=== PATIENT | female | born 1940 | race Caucasian/White ===

== ENCOUNTER → 2017-08-06 | Outpatient (CLI) | payer MEDICARE, OTHER ==
[~2017-08-06] MED LIST: ALBU8.5H IH; ASPI-757 PO; BECL8.7A6 IH; CALC-29 PO; CETI10CA8 PO; ESCI10TA8 PO; ESCI5TAB3 PO; GABA-549 PO; LEVO75TA73 PO; LISI5TAB25 PO; VITA1CAP46 PO
--- NOTE | 2017-08-06 11:44 | RADIOLOGY IMAGING REPORT ---
FACILITY: [facility] - [place] PATIENT NAME: Alexandra Sharma : 1940 MR: [id number] V: [id number] EXAM DATE: ORDERING PHYSICIAN: CECILIA DOMINIQUE TECHNOLOGIST: Location: [facility] - [place] Patient: Alexandra Sharma : 1940 Visit/Account:[id number] Date of Sevice: 08/06/2017 DEXA Scan Clinical history: Postmenopausal. Comparison: DEXA scan from 03/26/2016. LUMBAR SPINE: The bone mineral density (BMD) measured from L1-L4 correlates with a Z-score of 2.1 and a T-score of 0.6 which is Normal as defined by the World Health Organization. The corresponding risk of fracture in the lumbar spine is Not increased compared with a young adult reference population. This value de leon s increase by 2.5 % since the prior study. More than 5% change is considered significant. HIP: Bone mineral density (BMD) measured in the LEFT total hip region correlates with a Z-score -0.6 and a T-score of -2.3 which is osteopenia as defined by the World Health Organization. The corresponding risk of fracture in the hip is 4-6 times increased compared to a young adult reference population. Th is value has decreased by 7.7 % since the prior study. More than 5% change is considered significant . T score left femoral neck -2.9 Bone mineral density (BMD) measured in the Femoral Neck region measures 0.636 g/cm?. IMPRESSION: 1. Lumbar spine: Normal. There has been 2.5% increase in the bone mineral density since the previou s exam. 2. Left Total Hip: Osteopenia. There has been 7.7% decrease in the bone mineral density since the p revious exam. 3. Femoral Neck: Bone Mineral Density is 0.636 g/cm? The next DEXA scan of this patient should include the following sites: L1-L4 and the left hip. FRAX? WHO Fracture Risk Assessment Tool link: <http://www.shef.ac.uk/FRAX/tool.jsp?locationValue=9> PLEASE NOTE: 1) The World Health Organization defines low BMD as follows: T-score Normal > -1 Osteopenia < -1 and > -2.5 Osteoporosis < -2.5 without fractures Established osteoporosis < -2.5 with fractures 2) In general, you may wish to consider: Diagnosis Treatment Follow-up DEXA Normal BMD Prevention 2-3 years Osteopenia Prevention/therapy 1-2 years Osteoporosis Therapy Yearly 3) Fracture risk estimated from the T-score is more accurate for vertebral fractures (often spontane ous) than for hip fractures. Report Dictated By: Sylvia Matos MD at 08/06/2017 11:37 AM Report E-Signed By: Sylvia Matos MD at 08/06/2017 11:39 AM WSN:[email or web address]
== END ==
LOC: RAD 04:03
PROVIDERS: ATTEND Nurse Practitioner Family
DX: Z13.820 Encounter for screening for osteoporosis (principal); M85.88 Other specified disorders of bone density and structure, other site; Z78.0 Asymptomatic menopausal state
CPT/HCPCS: 77080

== ENCOUNTER → 2017-08-16 | Outpatient (CLI) | payer MEDICARE, OTHER ==
--- NOTE | 2017-08-16 16:27 | RADIOLOGY IMAGING REPORT ---
FACILITY: [facility] - [place], [place] PATIENT NAME: Alexandra Sharma : 1940 MR: [id number] V: [id number] EXAM DATE: ORDERING PHYSICIAN: CECILIA DOMIINQUE TECHNOLOGIST: Location: [facility] Patient: Alexandra Sharma : 1940 Visit/Account:[id number] Date of Sevice: 08/16/2017 Exam type: 3 views left hand History: Left hand pain Comparison: None. Findings: There is no acute fracture or osseous abnormality. Patient is osteopenic. Mild degenerative changes a re noted the IP joints. Mild soft tissue swelling around the left 4th PIP joint. Degenerative change and also noted at the 1st CMC joint. IMPRESSION: 1. No acute osseous abnormality of the left hand. 2. Osteopenia and degenerative changes at the 1st CMC joint and minimally at the IP joints. Report Dictated By: Lenny Thakur MD at 08/16/2017 4:20 PM Report E-Signed By: Lenny Thakur MD at 08/16/2017 4:23 PM WSN:[id number]
== END ==
LOC: RAD 15:56
PROVIDERS: ATTEND Nurse Practitioner Family
DX: M85.842 Other specified disorders of bone density and structure, left hand (principal); M25.442 Effusion, left hand; M18.9 Osteoarthritis of first carpometacarpal joint, unspecified

== ENCOUNTER 2017-09-02 01:25 | Day surgery (SDC) | payer MEDICARE, OTHER ==
[~2017-09-02] VITALS: Ht 172.7 cm; Wt 69.9 kg
[2017-09-02 06:58] VITALS: BP 128/63
[2017-09-02] MEDS ORDERED: LIDOCAINE/SOD BICARB 8.4% SYR ID ONE (07:30)
[2017-09-02] MEDS ORDERED: NORMOSOL R SOLN(*) 1000 ML BAG 1,000 ML IV PRN (07:30)
[2017-09-02] MEDS ORDERED: LIDOCAINE MPF 1% 5 ML VIAL ONE (08:02)
[2017-09-02] MEDS ORDERED: PROPOFOL EMUL(*) 10MG/ML 20 ML 40 ML ONE (08:02)
[2017-09-02 08:31] VITALS: BP 75/47
--- NOTE | 2017-09-02 08:32 | Post Operative Progress Note ---
Post Operative Progress Note Date: Sep 02, 2017 Time: 08:32 Surgeon: mario Anesthesia: dr qiu Pre-Op Diagnosis: screening colonoscopy Post-Op Diagnosis: normal exam Procedure(s): colonoscopy RENEE FAIR MD Sep 02, 2017 08:32
--- NOTE | 2017-09-02 08:33 | Short(Outpt) Discharge Summary ---
Discharge Summary Reason for Hosp/Final Diag: (1) Encounter for screening colonoscopy Hospital Course & Plan: normal colonoscopy Departure Discharge to: Home Discharge Instructions Home Meds Active Scripts Lisinopril (LISINOPRIL) 5 Mg Tablet, 1 TAB PO QDAY, #90 TAB 1 Refill Prov:CECILIA DOMINIQUE APRN-C 08/02/17 Escitalopram Oxalate (ESCITALOPRAM OXALATE) 5 Mg Tablet, 1 TAB PO QDAY, #90 TAB 1 Refill Prov:CECILIA DOMINIQUE APRN-C 08/02/17 Levothyroxine Sodium (LEVOTHYROXINE SODIUM) 75 Mcg Tablet, 1 TAB PO QDAY, #90 TAB 1 Refill Prov:CECILIA DOMINIQUE APRN-C 08/02/17 Reported Medications Calcium Carbonate/Vitamin D3 (Calcium 600 + Vit D 800 Tab) 1 Each Tablet, 1 TAB PO QODAY 11/12/15 Cetirizine Hcl (ZYRTEC) 10 Mg Capsule, 10 MG PO QDAY, CAPSULE TAKE 1 CAPSULE DAILY. 10/24/14 Beclomethasone Dipropionate 80 Mcg/Act (QVAR 80 MCG/ACT) 8.7 Gm Aer.w.adap, 2 PUFF IH BID Y for ALLERGY SYMPTOMS 10/24/14 Albuterol Sulfate 90 Mcg/Act (PROAIR HFA 90 MCG/ACT) 8.5 Gm Hfa.aer.ad, 2 PUFF IH Q4-6H Y for ALLERGY SYMPTOMS 10/24/14 Aspirin (ASPIRIN) 325 Mg Tablet, 1 TAB PO Q4-6H Y for PAIN, TAB 10/24/14 Diet: Regular Activity: As Tolerated RENEE FAIR MD Sep 02, 2017 08:33
[2017-09-02 08:45] VITALS: BP 127/68
[2017-09-02 09:02] VITALS: BP 97/72
[2017-09-02 09:03] VITALS: BP 98/62
--- NOTE | 2017-09-02 15:28 | OPERATIVE REPORT 1 ---
EVENT DATE: September 02, 2017 SURGEON: Kaleb Marcus MD ANESTHESIOLOGIST: Woo Cruz MD ANESTHESIA: Sedation. PREOPERATIVE DIAGNOSIS Screening colonoscopy. POSTOPERATIVE DIAGNOSIS Normal-appearing colonoscopic examination. PROCEDURE PERFORMED Colonoscopy. DESCRIPTION OF PROCEDURE The patient was placed in the left lateral decubitus position and given intravenous sedation. Rectal exam was unremarkable. A flexible colonoscope was inserted and advanced to the cecum. She had an excellent bowel prep. Ileocecal valve and base of the cecum were identified. The scope was slowly withdrawn. Care was taken to look behind the haustral folds. No abnormalities were noted in the cecum, right colon, transverse, descending, or sigmoid colon. Rectum was normal. The scope was retroflexed, and that appeared to be normal. [facility]
== END 2017-09-02 09:15 | disposition home or self-care (01) ==
LOC: OR 01:25
PROVIDERS: ATTEND Surgery
DX: Z12.11 Encounter for screening for malignant neoplasm of colon (principal)
CPT/HCPCS: 00812; G0121; J2001; J2704

== ENCOUNTER 2017-12-15 07:18 | Observation (INO) | payer MEDICARE, OTHER ==
[2017-12-15] VITALS (14 sets, daily range): BP systolic 101–139; BP diastolic 55–74
[~2017-12-15] VITALS: Ht 172.7 cm; Wt 72.6 kg
[2017-12-15] MEDS ORDERED: GLUCAGON 1 MG KIT IV ONE ×2 (07:40→09:00)
--- NOTE | 2017-12-15 07:53 | ER Report ---
History and Physical Time Seen By MD: 07:15 Hx. of Stated Complaint: WEDNESDAY AFTERNOON GOT SOMETHING, MAYBE MEAT, STUCK IN THROAT. NO DIFF BREATHING BUT CAN'T SWALLOW WELL, CAN'T TAKE HER PILLS HPI/ROS CHIEF COMPLAINT: Food impaction HISTORY OF PRESENT ILLNESS: Otherwise healthy 77-year-old female comes emergency Department after 2 days of difficulty in swallowing both liquids and solids after eating a large pork dinner patient states that subsequently since and 24-48 hours prior to presentation she was eating a pork meal and felt something get stuck she's never had this issue significantly in the past she's never had to go to Hospital before she says she has had times where she is felt its gone down a little rough but it's never had an issue to the point were she had a sick medical attention. Patient states however this time she's not been able to get water down she's not been able to get food down and finally came to the emergency department. She is denying chest pain at this time but does have a sensation of fullness in her chest she is denying nausea vomiting diarrhea fever chills or additional complaints at this time REVIEW OF SYSTEMS: Respiratory: No cough, no dyspnea. Cardiovascular: No chest pain, no palpitations. Gastrointestinal: Sensation of food impaction inability to swallow both liquids and solids Musculoskeletal: No back pain. Remainder of the 14 system rev: Yes Allergies: Uncoded Allergies: grass (Allergy, Intermediate, 10/24/14) trees (Allergy, Intermediate, 10/24/14) Home Meds Active Scripts Lisinopril (LISINOPRIL) 5 Mg Tablet, 1 TAB PO QDAY, #90 TAB 1 Refill Prov:CECILIA DOMINIQUE APRN-C 08/02/17 Escitalopram Oxalate (ESCITALOPRAM OXALATE) 5 Mg Tablet, 1 TAB PO QDAY, #90 TAB 1 Refill Prov:CECILIA DOMINIQUE APRN-C 08/02/17 Levothyroxine Sodium (LEVOTHYROXINE SODIUM) 75 Mcg Tablet, 1 TAB PO QDAY, #90 TAB 1 Refill Prov:CECILIA DOMINIQUE APRN-C 08/02/17 Reported Medications Calcium Carbonate/Vitamin D3 (Calcium 600 + Vit D 800 Tab) 1 Each Tablet, 1 TAB PO QODAY 11/12/15 Cetirizine Hcl (ZYRTEC) 10 Mg Capsule, 10 MG PO QDAY, CAPSULE TAKE 1 CAPSULE DAILY. 10/24/14 Beclomethasone Dipropionate 80 Mcg/Act (QVAR 80 MCG/ACT) 8.7 Gm Aer.w.adap, 2 PUFF IH BID Y for ALLERGY SYMPTOMS 10/24/14 Albuterol Sulfate 90 Mcg/Act (PROAIR HFA 90 MCG/ACT) 8.5 Gm Hfa.aer.ad, 2 PUFF IH Q4-6H Y for ALLERGY SYMPTOMS 10/24/14 Aspirin (ASPIRIN) 325 Mg Tablet, 1 TAB PO Q4-6H Y for PAIN, TAB 10/24/14 Reviewed Nurses Notes: Yes Old Medical Records Reviewed: Yes Hx Smoking: No Smoking Status: Never Smoker Hx Substance Use Disorder: No Hx Alcohol Use: No Constitutional Vital Sign - Last 24 Hours 12/15/17 07:21 Temp 98.4 Pulse 61 Resp 12 B/P (MAP) 147/72 Pulse Ox 93 O2 Delivery Room Air Physical Exam General Appearance: The patient is alert, has no immediate need for airway protection and no current signs of toxicity. [ ] Eyes: Pupils equal and round no injection. Respiratory: Chest is non tender, lungs are clear to auscultation. Cardiac: regular rate and rhythm [ ] Gastrointestinal: Abdomen is soft and non tender, no masses, bowel sounds normal. Musculoskeletal: Neck: Neck is supple and non tender. Extremities have full range of motion and are non tender. Skin: No rashes or lesions. [ ] DIFFERENTIAL DIAGNOSIS: After history and physical exam differential diagnosis was considered for food bolus impaction Medical Decision Making Data Points Result Diagram: 12/15/17 0745 12/15/17 0745 Laboratory Hematology Test 12/15/17 07:45 12/15/17 08:46 Red Blood Count 4.81 M/uL (4.17-5.56) Mean Corpuscular Volume 94.7 fL (80.0-96.0) Mean Corpuscular Hemoglobin 32.9 pg (26.0-33.0) Mean Corpuscular Hemoglobin Concent 34.8 g/dL (32.0-36.0) Red Cell Distribution Width 13.1 % (11.5-14.5) Mean Platelet Volume 9.8 fL (7.2-11.1) Neutrophils (%) (Auto) 54.8 % (39.4-72.5) Lymphocytes (%) (Auto) 26.0 % (17.6-49.6) Monocytes (%) (Auto) 8.5 % (4.1-12.4) Eosinophils (%) (Auto) 7.6 % (0.4-6.7) Basophils (%) (Auto) 3.1 % (0.3-1.4) Nucleated RBC Relative Count (auto) 0.0 /100WBC Neutrophils # (Auto) 3.3 K/uL (2.0-7.4) Lymphocytes # (Auto) 1.6 K/uL (1.3-3.6) Monocytes # (Auto) 0.5 K/uL (0.3-1.0) Eosinophils # (Auto) 0.5 K/uL (0.0-0.5) Basophils # (Auto) 0.2 K/uL (0.0-0.1) Nucleated RBC Absolute Count (auto) 0.00 K/uL Prothrombin Time 13.1 seconds (12.0-14.4) Prothromb Time International Ratio 0.99 Activated Partial Thromboplast Time 27 seconds (23-35) Sodium Level 133 mmol/L (137-145) Potassium Level 4.8 mmol/L (3.5-5.0) Chloride Level 98 mmol/L (98-107) Carbon Dioxide Level 23 mmol/L (22-31) Blood Urea Nitrogen 16 mg/dl (7-18) Creatinine 1.10 mg/dl (0.52-1.04) Glomerular Filtration Rate Calc 48.0 Random Glucose 101 mg/dl (75-110) Calcium Level 9.5 mg/dl (8.4-10.2) Total Bilirubin 2.5 mg/dl (0.2-1.3) Aspartate Amino Transf (AST/SGOT) 28 U/L (0-35) Alanine Aminotransferase (ALT/SGPT) 18 U/L (0-56) Alkaline Phosphatase 83 U/L (0-126) Total Protein 7.1 g/dl (6.3-8.2) Albumin 4.3 g/dl (3.5-5.0) Whole Blood Glucose 101 mg/DL (75-110) Chemistry Test 12/15/17 07:45 12/15/17 08:46 White Blood Count 6.0 k/uL (4.5-11.0) Red Blood Count 4.81 M/uL (4.17-5.56) Hemoglobin 15.9 g/dL (12.0-16.0) Hematocrit 45.6 % (34.0-47.0) Mean Corpuscular Volume 94.7 fL (80.0-96.0) Mean Corpuscular Hemoglobin 32.9 pg (26.0-33.0) Mean Corpuscular Hemoglobin Concent 34.8 g/dL (32.0-36.0) Red Cell Distribution Width 13.1 % (11.5-14.5) Platelet Count 239 K/uL (150-450) Mean Platelet Volume 9.8 fL (7.2-11.1) Neutrophils (%) (Auto) 54.8 % (39.4-72.5) Lymphocytes (%) (Auto) 26.0 % (17.6-49.6) Monocytes (%) (Auto) 8.5 % (4.1-12.4) Eosinophils (%) (Auto) 7.6 % (0.4-6.7) Basophils (%) (Auto) 3.1 % (0.3-1.4) Nucleated RBC Relative Count (auto) 0.0 /100WBC Neutrophils # (Auto) 3.3 K/uL (2.0-7.4) Lymphocytes # (Auto) 1.6 K/uL (1.3-3.6) Monocytes # (Auto) 0.5 K/uL (0.3-1.0) Eosinophils # (Auto) 0.5 K/uL (0.0-0.5) Basophils # (Auto) 0.2 K/uL (0.0-0.1) Nucleated RBC Absolute Count (auto) 0.00 K/uL Prothrombin Time 13.1 seconds (12.0-14.4) Prothromb Time International Ratio 0.99 Activated Partial Thromboplast Time 27 seconds (23-35) Glomerular Filtration Rate Calc 48.0 Calcium Level 9.5 mg/dl (8.4-10.2) Total Bilirubin 2.5 mg/dl (0.2-1.3) Aspartate Amino Transf (AST/SGOT) 28 U/L (0-35) Alanine Aminotransferase (ALT/SGPT) 18 U/L (0-56) Alkaline Phosphatase 83 U/L (0-126) Total Protein 7.1 g/dl (6.3-8.2) Albumin 4.3 g/dl (3.5-5.0) Whole Blood Glucose 101 mg/DL (75-110) Coagulation Test 12/15/17 07:45 Prothrombin Time 13.1 seconds Prothromb Time International Ratio 0.99 Activated Partial Thromboplast Time 27 seconds ED Course/Re-evaluation ED Course ED clinical course after 2 rounds of glucagon the patient failed to have relief of symptoms general surgery has been consult the patient be taken for removal of foreign body Decision to Disposition Date: Dec 15, 2017 Decision to Disposition Time: 09:29 Depart Departure Latest Vital Signs Vital Signs Date Time Temp Pulse Resp B/P (MAP) Pulse Ox O2 Delivery O2 Flow Rate FiO2 12/15/17 07:21 98.4 61 12 147/72 93 Room Air Impression: Primary Impression: Esophageal foreign body Condition: Condition Unchanged Disposition: Admitted from ER Referrals: CECILIA DOMINIQUE APRN [facility]ECH [facility]RECTION CONSULTANT-C (PCP) SCOTT COBB MD Dec 15, 2017 07:53
[2017-12-15 08:00] LABS: PLATELET COUNT, AUTOMATED 239 K/uL (150-450)
[2017-12-15] MEDS ORDERED: NS(*) 0.9% 1000 ML BAG 1,000 ML IV ONE (08:00)
[2017-12-15 08:02] LABS: INR 0.99
--- NOTE | 2017-12-15 08:18 | RADIOLOGY IMAGING REPORT ---
[facility] PATIENT NAME: Alexandra Sharma : 1940 MR: [id number] V: [id number] EXAM DATE: ORDERING PHYSICIAN: SCOTT COBB TECHNOLOGIST: Location: [facility] Patient: Alexandra Sharma : 1940 Visit/Account:[id number] Date of Sevice: 12/15/2017 EXAMINATION: Chest radiographs 2 views HISTORY: Food impaction. COMPARISON: None. FINDINGS: PA and lateral views of the chest are submitted. Lines/tubes: None. Lungs/pleura: No focal consolidation or pleural effusion. Lung aeration is symmetric. There is no ra diopaque foreign body. Heart: Negative. Mediastinum: Negative. Bony structures/body wall: Mild degenerative changes of the upper lumbar spine. IMPRESSION: No radiographic evidence of acute cardiopulmonary disease. Report Dictated By: Nelly Sy MD at 12/15/2017 8:13 AM Report E-Signed By: Nelly Sy MD at 12/15/2017 8:14 AM WSN:[id number]
[2017-12-15] MEDS ORDERED: GLUCAGON 1 MG KIT IM ONE (08:50)
[2017-12-15] MEDS ORDERED: DEXAMETHASONE SOD 4 MG/ML VIAL ONE (09:40)
[2017-12-15] MEDS ORDERED: LIDOCAINE MPF 1% 5 ML VIAL ONE (09:40)
[2017-12-15] MEDS ORDERED: PROPOFOL EMUL(*) 10MG/ML 20 ML 20 ML ONE (09:40)
--- NOTE | 2017-12-15 10:44 | Gen Surgery History & Physical ---
History of Present Illness Chief Complaint Unable to swallow since Wednesday- 2 days ago. History of Present Illness 77 y/o female previously healthy who eat a piece of pulled pork on Wednesday PM. + Vomiting and inability to tolerate liquids or solids + 2 year hx of dysphagia. with dry meats sticking in her esophagus on rare occasion No prior EGD or swallow study No GERD sxs No PPI or H2 Boubacar use PMHX: Hypothyroid Allergic Rhinitis HTN Dysphagia x 2 years ?Painless migraines MEDS: Synthroid Lisinopril Zyrtex PRN ASA PRN (Last one week ago) PSHX: Colonocopy 2017 neg Bilateral cataracts Apr 2017 ANKUR Marrufo SOCIAL: Lives with in [place] Retired from security clerk at the [employer] Tobacco- None ETOH- None Drugs- No illicit FHX: Mother, , 60's from ovarian CA Father, , 60's from Arthritis at [facility] Brother x 2: one from URI/Pneumonia Sister x 2 [employer] ALLERGIES: NKDA History Problems: (1) Esophageal foreign body Status: Acute (2) Hypothyroidism Status: Chronic (3) Asthma Status: Chronic (4) Allergic rhinitis Status: Chronic Home Meds Active Scripts Pantoprazole Sodium (PANTOPRAZOLE SODIUM) 40 Mg Tablet.dr, 40 MG PO QDAY for 30 Days, #30 TAB.SR 9 Refills Prov:JOSE SCHUSTER MD 12/16/17 Lisinopril (LISINOPRIL) 5 Mg Tablet, 1 TAB PO QDAY, #90 TAB 1 Refill Prov:CECILIA DOMINIQUE APRN 08/02/17 Escitalopram Oxalate (ESCITALOPRAM OXALATE) 5 Mg Tablet, 1 TAB PO QDAY, #90 TAB 1 Refill Prov:CECILIA DOMINIQUE APRN 08/02/17 Levothyroxine Sodium (LEVOTHYROXINE SODIUM) 75 Mcg Tablet, 1 TAB PO QDAY, #90 TAB 1 Refill Prov:CECILIA DOMINIQUE APRN 08/02/17 Reported Medications Naproxen Sodium (ALEVE) 220 Mg Tablet, 220 MG PO TID Y for PAIN, TAB 12/15/17 Calcium Carbonate/Vitamin D3 (Calcium 600 + Vit D 800 Tab) 1 Each Tablet, 1 TAB PO QODAY 11/12/15 Cetirizine Hcl (ZYRTEC) 10 Mg Capsule, 10 MG PO QDAY, CAPSULE TAKE 1 CAPSULE DAILY. 10/24/14 Beclomethasone Dipropionate 80 Mcg/Act (QVAR 80 MCG/ACT) 8.7 Gm Aer.w.adap, 2 PUFF IH BID Y for ALLERGY SYMPTOMS 10/24/14 Albuterol Sulfate 90 Mcg/Act (PROAIR HFA 90 MCG/ACT) 8.5 Gm Hfa.aer.ad, 2 PUFF IH Q4-6H Y for ALLERGY SYMPTOMS 10/24/14 Aspirin (ASPIRIN) 325 Mg Tablet, 1 TAB PO Q4-6H Y for PAIN, TAB 10/24/14 Allergies: Uncoded Allergies: grass (Allergy, Intermediate, 10/24/14) trees (Allergy, Intermediate, 10/24/14) Patient History: FH: arthritis FATHER, , Age:46 FH: hemochromatosis CHILD, Age:55 FH: hypothyroidism MOTHER, , Age:65 Review of Systems Constitutional: Weight Loss (20 pound loss over 1 year; intentional), No Fever , No Weight Gain, No Chills Neurological: No Syncope, No Confusion, No Weakness, No Dizziness, No Slurred Speech Eyes: No Vision Change, No Loss of Vision, No Photophobia ENT: Hearing Loss, Other, No Sinus Congestion, No Sore Throat, No Ear Ache, No Tinnitus Cardiovascular: No Chest Pain, No Palpitations, No Orthostatic Hypotension Respiratory: No Shortness of Breath, No Cough, No Wheezing Gastrointestinal: Nausea, Vomiting, No Diarrhea, No Dysphagia, Constipation, No Early Satiety, No Hematemesis, No Hematochezia, No Melena, No Abdominal Pain Genitourinary: No Dysuria, No Hematuria, No Urinary Incontinence Musculoskeletal: Pain, Other (Low back pain; has limited prior 3 miles/day of walking), No Sprain, No Strain, No Impaired Mobility Psychiatric: Anxiety, Other, No Depression Exam General Appearance: Alert, Awake, No Acute Distress, Afebrile Neuro: No Gross deficits Eyes: PERRLA (EOMI) ENT: Moist Mucous Membranes, Oropharynx Clear, Posterior Pharynx Clear Neck: No Masses (Normal thyroid) Cardiovascular: Normal Rhythm & Peripheral Pulses, Regular Rate and Rhythm, No Edema Respiratory: No Respiratory Distress, Clear to Auscultation GI: Abd Soft and Non-Tender : No CVA Tenderness Lymph: No Adenopathy Musculoskeletal: No Weakness/Pain Extremities: Soft and Non Tender, Warm, Pulses, Perfused Integumentary: Skin Intact without Lesion / Mass, No Jaundice Psych: Alert & Oriented X3, Appropriate Mood & Affect (Slight memory loss- medications, dates) Medical Decision Making Data Points Result Diagram: 12/15/17 0745 12/15/17 0745 EKG / Imaging Monitor Interpretation: Normal Sinus Rhythm Pre-Admit Course ED Medications Given two rounds of glucagon with no passage of the esophageal obstruction Assessment and Plan Problems: (1) HTN (hypertension) Status: Chronic Assessment & Plan: Lisinopril once able to take PO (2) Asthma Status: Chronic (3) Hypothyroidism Status: Chronic Assessment & Plan: Synthroid once taking PO (4) Esophageal foreign body Status: Acute Assessment & Plan: 12/15/17 EGD today with anesthesia support; removal of Foreign Body; IV Hydration (5) Low back pain Status: Chronic Assessment & Plan: Takes medication PRN; Recent injection with improved sxs Condition I have recommended an EGD with FB removal; will require Anesthesia intubation. All risks, benefits and complications discussed and explained with the pt and her . Most serious risks include esophageal perforation, loss of airway , inability to remove the obstruction. Informed consent obtained and they wish to proceed with the procedure. Will likely require overnight admit and observation due to the 2 day delay in meat removal and concern for esophageal erosion/injury. Anesthesia is currently encumbered with an OR case but will be available within 2 hours anticipated. SCDs for DVT prophylaxis until EGD completed. Time Spent: > 30 min Copies to: JUAN NUGENT MD Venous Thromboembolism VTE Risk Physician Assess for VTE Risk: Yes Patient's VTE Risk: Low VTE Diagnostic Test 2 Days Prior to Admit: No Antithrombotics Is Pt On Any Antithrombotics?: No Problem Qualifiers (1) Asthma: Asthma severity: mild Asthma persistence: intermittent Asthma complication type: uncomplicated Qualified Codes: J45.20 - Mild intermittent asthma, uncomplicated (2) Hypothyroidism: Hypothyroidism type: acquired Qualified Codes: E03.9 - Hypothyroidism, unspecified (3) Esophageal foreign body: Encounter type: initial encounter Qualified Codes: T18.108A - Unspecified foreign body in esophagus causing other injury, initial encounter JOSE SCHUSTER MD Dec 15, 2017 10:44
[2017-12-15] MEDS ORDERED: KCL/D1/2NS 20 MEQ 1000 ML 1,000 ML IV PRN (10:45)
[2017-12-15] MEDS ORDERED: ONDANSETRON 4 MG/2 ML VIAL IVP PRN (10:45)
[2017-12-15] MEDS ORDERED: KETOROLAC 15 MG/ML VIAL IVP PRN (10:45)
--- NOTE | 2017-12-15 10:59 | EKG ---
FACILITY: [facility] PATIENT NAME: MARY ROBLEDO : [id number] MR: [id number] V: [id number] EXAM DATE: ORDERING PHYSICIAN: SCOTT COBB TECHNOLOGIST: LIAT Fiore Reason : PRE-OP Blood Pressure : / mmHG Vent. Rate : 062 BPM Atrial Rate : 062 BPM P-R Int : 208 ms QRS Dur : 092 ms QT Int : 448 ms P-R-T Axes : 057 -56 055 degrees QTc Int : 454 ms Sinus rhythm First degree AV block Left axis Possible left atrial enlargement Poor R wave progression anteriorly Abnormal ECG No previous ECGs available Confirmed by GINGER ALFREDO ([id number]) on 12/16/2017 5:36:15 AM Referred By: JORDYN Confirmed By:GINGER ALFREDO
[2017-12-15] MEDS ORDERED: PANTOPRAZOLE SOD 40 MG IV VIAL IVP SCH (11:00)
[2017-12-15] MEDS ORDERED: NORMOSOL R SOLN(*) 1000 ML BAG 1,000 ML IV ONE (11:05)
[2017-12-15] MEDS ORDERED: ePHEDrine 25 MG/5 ML DISP.SYR IVP ONE (12:00)
[2017-12-15] MEDS ORDERED: ROCURONIUM BROM 10 MG/ML 5 ML ONE (12:00)
[2017-12-15] MEDS ORDERED: fentaNYL CITR 100 MCG/2 ML AMP ONE (12:02)
[2017-12-15] MEDS ORDERED: SUCCINYLCHOL CHL 200MG/10ML VL ONE (12:03)
[2017-12-15] MEDS ORDERED: ONDANSETRON 4 MG/2 ML VIAL ONE (12:27)
--- NOTE | 2017-12-15 13:24 | Gen Surgery H&P BLANK ---
GENERAL SURGERY H&P BLANK PROCEDURE NOTE: EGD Date: 15 December 2017 Name: Alexandra Sharma Surgeon: Raulito Hood MD Anesthesia: MARK Reid Procedure: Esophagogastrostomy with Foreign Body removal Indication: 77 y/o female with 2 year hx of dysphagia who swallowed pork 2 days ago with no PO intake since. + Emesis with all attempts. Procedure:Brought to the endoscopy suite after informed consent. Time out carried out per hospital policy. General endotracheal anesthesia initiated without difficulty. Once sedated adequately, the EGD scope was passed under direct vision into the esophagus and down to the distal esophagus where a large piece of yellow meat was encountered. Using suction and repetitive passes, the foreign body was removed in large segments. The final remnants passed into the stomach. There were superficial erosions noted of the distal esophagus- see pictures. No evidence of a perforation noted. The EGD scope was removed and the patient extubated without difficulty. The patient tolerated the procedure well without known complications. She did a brief period of hypotension once stimulation ended after removal of the endoscope. She will be observed overnight for tachycardia or fever. Patient will followup with Dr Nugent in two weeks and continue on PPI which was initiated today. Complications: None Specimen: Partially digested food- not sent to pathology. Copies to: JUAN NUGENT MD, WARREN MD Dec 15, 2017 13:23
[2017-12-15] MEDS ORDERED: ENOXAPARIN 40 MG/0.4ML SYR SC SCH (16:00)
[2017-12-15] MEDS ORDERED: NAPR-1043 PO (21:29)
[2017-12-16 03:50] VITALS: BP 135/59
[2017-12-16] MEDS ORDERED: PANT40TA65 PO ×2 (06:21→06:35)
--- NOTE | 2017-12-16 06:26 | Short(Outpt) Discharge Summary ---
Discharge Summary Reason for Hosp/Final Diag: (1) HTN (hypertension) Status: Chronic Hospital Course & Plan: Lisinopril; resume home dose (2) Asthma Status: Chronic Hospital Course & Plan: resume Home medications (3) Hypothyroidism Status: Chronic Hospital Course & Plan: Resume home dose of Synthroid (4) Esophageal foreign body Status: Acute Hospital Course & Plan: 12/15/17: EGD with anesthesia support and intubation; removal of Foreign Body from the distal esophagus; Superficial erosions of the distal esophagus; IV Hydration; PPI 12/16/17: Tolerated clear liquids, Afebrile and no tachycardia and no chest pain. Plan to D/C Home on liquids today; Full liquids tomorrow; Pureed diet for two weeks. Take Protonix 40 po QD and followup with Dr Nugent for esophageal evaluation (5) Low back pain Status: Chronic Hospital Course & Plan: Takes medication PRN; Recent injection with improved sxs Departure Discharge to: Home Discharge Instructions Home Meds Active Scripts Pantoprazole Sodium (PANTOPRAZOLE SODIUM) 40 Mg Tablet., 40 MG PO QDAY for 30 Days, #30 TAB.SR 9 Refills Prov:JOSE SCHUSTER MD 12/16/17 Lisinopril (LISINOPRIL) 5 Mg Tablet, 1 TAB PO QDAY, #90 TAB 1 Refill Prov:CECILIA DOMINIQUE APRN-Frida 08/02/17 Escitalopram Oxalate (ESCITALOPRAM OXALATE) 5 Mg Tablet, 1 TAB PO QDAY, #90 TAB 1 Refill Prov:CECILIA DOMINIQUE APRN 08/02/17 Levothyroxine Sodium (LEVOTHYROXINE SODIUM) 75 Mcg Tablet, 1 TAB PO QDAY, #90 TAB 1 Refill Prov:CECILIA DOMINIQUE APRN 08/02/17 Reported Medications Naproxen Sodium (ALEVE) 220 Mg Tablet, 220 MG PO TID Y for PAIN, TAB 12/15/17 Calcium Carbonate/Vitamin D3 (Calcium 600 + Vit D 800 Tab) 1 Each Tablet, 1 TAB PO QODAY 11/12/15 Cetirizine Hcl (ZYRTEC) 10 Mg Capsule, 10 MG PO QDAY, CAPSULE TAKE 1 CAPSULE DAILY. 10/24/14 Beclomethasone Dipropionate 80 Mcg/Act (QVAR 80 MCG/ACT) 8.7 Gm Aer.w.adap, 2 PUFF IH BID Y for ALLERGY SYMPTOMS 10/24/14 Albuterol Sulfate 90 Mcg/Act (PROAIR HFA 90 MCG/ACT) 8.5 Gm Hfa.aer.ad, 2 PUFF IH Q4-6H Y for ALLERGY SYMPTOMS 10/24/14 Aspirin (ASPIRIN) 325 Mg Tablet, 1 TAB PO Q4-6H Y for PAIN, TAB 10/24/14 Diet: Diabetic (Liquids today (12/16); Full liquids tomorrow;then Pureed diet for two weeks. ) Activity: As Tolerated Special Instructions: Liquids today; Full liquids tomorrow; Pureed diet for two weeks. Take Protonix 40mg by mouth daily; Diospense 30; refill [address] Nugent to determine need for swallow study or EGD Copies to: JUAN NUGENT MD Problem Qualifiers (1) Asthma: Asthma severity: mild Asthma persistence: intermittent Asthma complication type: uncomplicated Qualified Codes: J45.20 - Mild intermittent asthma, uncomplicated (2) Hypothyroidism: Hypothyroidism type: acquired Qualified Codes: E03.9 - Hypothyroidism, unspecified (3) Esophageal foreign body: Encounter type: initial encounter Qualified Codes: T18.108A - Unspecified foreign body in esophagus causing other injury, initial encounter JOSE SCHUSTER MD Dec 16, 2017 06:26
--- NOTE | 2017-12-16 06:46 | General Surgery Progress Note ---
Subjective Patient Complains of: Cardiovascular: No: Chest Pain, Palpitations Gastrointestinal: No Nausea, No Vomiting Physical Exam Vital Signs Date Time Temp Pulse Resp B/P (MAP) Pulse Ox O2 Delivery O2 Flow Rate FiO2 12/16/17 04:21 84 12/16/17 03:50 97.8 74 135/59 (84) Nasal Cannula 0.5 12/15/17 23:13 14 General Appearance: Alert, Awake, No Acute Distress Neuro: No Gross deficits ENT: Moist Mucous Membranes Cardiovascular: Normal Rhythm & Peripheral Pulses, Regular Rate and Rhythm Respiratory: No Respiratory Distress, Clear to Auscultation GI: Soft and Non-Tender Extremities: Soft and Non Tender, Warm, Pulses, Perfused, No Edema Integumentary: Skin Intact without Lesion / Mass Result Diagram: 12/15/17 0745 12/15/17 0745 Monitor Interpretation: Normal Sinus Rhythm Assessment and Plan Problems: (1) HTN (hypertension) Status: Chronic Assessment & Plan: Lisinopril resume at home today (2) Asthma Status: Chronic Assessment & Plan: Resume home therapy (3) Hypothyroidism Status: Chronic Assessment & Plan: Synthroid resume today (4) Esophageal foreign body Status: Acute Assessment & Plan: 12/15/17 EGD today with anesthesia support; removal of Foreign Body; IV Hydration; PPI 12/16/17: Afebrile, no tachycardia; Tolerated clear liquids. D/C to home today with PPI and F/U eval by Dr Londono in two weeks (5) Low back pain Status: Chronic Assessment & Plan: Takes medication PRN; Recent injection with improved sxs Time Spent: > 30 min (to include documentation and discharge summary, orders, and followup arrangements; Pt educated on the above.) Exam Sepsis Risk: No Definite Risk Problem Qualifiers (1) Asthma: Asthma severity: mild Asthma persistence: intermittent Asthma complication type: uncomplicated Qualified Codes: J45.20 - Mild intermittent asthma, uncomplicated (2) Hypothyroidism: Hypothyroidism type: acquired Qualified Codes: E03.9 - Hypothyroidism, unspecified (3) Esophageal foreign body: Encounter type: subsequent encounter Qualified Codes: T18.108D - Unspecified foreign body in esophagus causing other injury, subsequent encounter (4) Low back pain: Chronicity: chronic JOSE SCHUSTER MD Dec 16, 2017 06:46
[2017-12-16 07:08] VITALS: BP 126/68
== END 2017-12-16 06:35 | disposition home or self-care (01) ==
LOC: ER 07:40 → OR 09:31 → INTOOBSV 10:18 → MED 10:18 → EDBEDREQSVC 10:19 → EDBEDREQTM 10:19 → EDBEDREQ 10:19
PROVIDERS: ADMIT Surgery; ATTEND Surgery
DX: T18.128A Food in esophagus causing other injury, initial encounter (principal); I10 Essential (primary) hypertension; E03.9 Hypothyroidism, unspecified; Z86.718 Personal history of other venous thrombosis and embolism; Z79.899 Other long term (current) drug therapy
CPT/HCPCS: 36416; 43247; 71046; 82948; 85025; 85610; 85730; 93005; 96360; 96372; 99284; C9113; G0378; J0330; J1100; J1610; J1650; J2001; J2405; J2704; J3010; J7030; 82040; 82247; 82310; 82374; 82435; 82565; 82947; 84075; 84132; 84155; 84295; 84450; 84460; 84520

== ENCOUNTER → 2018-01-12 | Outpatient (CLI) | payer MEDICARE, OTHER ==
[~2018-01-12] MED LIST changes: +BARIUM SULFATE 176 GM BTL PO ONE; +BARIUM SULFATE 340 GM POWD ONE; +NAPR-1043 PO; +PANT40TA65 PO
--- NOTE | 2018-01-12 14:50 | RADIOLOGY IMAGING REPORT ---
FACILITY: [facility] [place] PATIENT NAME: Alexandra Sharma : 1940 MR: [id number] V: [id number] EXAM DATE: ORDERING PHYSICIAN: JUAN NUGENT TECHNOLOGIST: Location: [facility] Patient: Alexandra Sharma : 1940 Visit/Account:[id number] Date of Sevice: 01/12/2018 Exam type: ESOPHAGRAM History: Dysphasia, swallowed a piece of meat one month ago requiring surgery to remove Comparison: None. Findings: Double contrast esophagram was performed with thick and thin barium and air contrast. There is a pro minent impression along the posterior wall of the upper cervical esophagus from the cricopharyngeus m uscle. There is a small hiatal hernia and a large amount of gastroesophageal reflux. No mucosal ero sions are identified There is mild narrowing at the lower esophageal sphincter although a 12 mm renetta um tablet did pass into the stomach. The fluoroscopy dose area product was 192.75 micro-Sales per met er squared IMPRESSION: 1. Small hiatal hernia with a large amount of gastroesophageal reflux. No mucosal erosions identifi ed. There is mild narrowing at the lower esophageal sphincter although a 12 mm barium tablet did pas s into the stomach Prominent impression along the posterior wall of the upper cervical esophagus from the cricopharyngeu s muscle. Report Dictated By: Sylvia Matos MD at 01/12/2018 2:39 PM Report E-Signed By: Sylvia Matos MD at 01/12/2018 2:46 PM WSN:[email or web address]
== END ==
LOC: RAD 01:50
PROVIDERS: ATTEND Surgery
DX: K44.9 Diaphragmatic hernia without obstruction or gangrene (principal); K21.9 Gastro-esophageal reflux disease without esophagitis; K22.2 Esophageal obstruction
CPT/HCPCS: 74220

== ENCOUNTER → 2018-03-08 | Outpatient (CLI) | payer MEDICARE, OTHER ==
[~2018-03-08] MED LIST changes: -BARIUM SULFATE 176 GM BTL PO ONE; -BARIUM SULFATE 340 GM POWD ONE; +FLU180SY11 IM; +PANT20TA27 PO
[2018-03-08 10:37] LABS: PLATELET COUNT, AUTOMATED 223 K/uL (150-450)
== END ==
LOC: LAB 09:54
PROVIDERS: ATTEND Nurse Practitioner Family
DX: E03.9 Hypothyroidism, unspecified (principal); Z14.8 Genetic carrier of other disease; I10 Essential (primary) hypertension
CPT/HCPCS: 36415; 82040; 82247; 82310; 82374; 82435; 82465; 82565; 82728; 82947; 83540; 83550; 83718; 84075; 84132; 84155; 84295; 84443; 84450; 84460; 84478; 84520; 85025

== ENCOUNTER → 2018-11-03 | Outpatient (CLI) | payer MEDICARE, OTHER ==
[~2018-11-03] MED LIST changes: +TRIA15CR40 TP
== END ==
LOC: LAB 16:32
PROVIDERS: ATTEND Nurse Practitioner
DX: L82.1 Other seborrheic keratosis (principal)
CPT/HCPCS: 88305

== ENCOUNTER → 2018-12-29 | Outpatient (CLI) | payer MEDICARE, OTHER ==
[~2018-12-29] MED LIST changes: +ASPI-1471 PO; +ATOR-1 PO; +VARI50KI IM
== END ==
LOC: LAB 10:12
PROVIDERS: ATTEND Nurse Practitioner Family
DX: E03.9 Hypothyroidism, unspecified (principal); I10 Essential (primary) hypertension
CPT/HCPCS: 36415; 82310; 82374; 82435; 82565; 82947; 84132; 84295; 84443; 84520

== ENCOUNTER → 2019-01-02 | Outpatient (CLI) | payer MEDICARE, OTHER ==
[~2019-01-02] MED LIST changes: +GADOBENATE 529MG/1ML 15ML VIAL IVP ONE; +NS(*) 0.9% 50 ML BAG 50 ML ONE
--- NOTE | 2019-01-02 13:09 | RADIOLOGY IMAGING REPORT ---
FACILITY: [facility] PATIENT NAME: Alexandra Sharma : 1940 MR: [id number] V: [id number] EXAM DATE: ORDERING PHYSICIAN: CECILIA DOMINIQUE TECHNOLOGIST: [place] [facility] [place] [place] Sh[place] : 1940 Visit/Account:[id number] Date of Sevice: 01/02/2019 Examination: Pituitary MR without and with contrast History: Visual field deficit Comparison: None Technique: Multiplane pre and postcontrast MR imaging performed through the pituitary region. Axial f lair, sagittal T1 and axial diffusion acquisitions obtained through the brain. 15 mL MultiHance injec jerilyn. Findings: No diffusion restriction, hydrocephalus or midline shift. Mild to moderate patchy white matter high s ignal. A small vertex scalp sebaceous cyst is noted. The midline craniocervical structures are otherw ise unremarkable. Normal optic chiasm, infundibulum and cavernous sinuses. Normal sized pituitary gland exhibits unifor m and normal enhancement. IMPRESSION: 1. Normal pituitary and sella region without abnormality seen to explain the visual field deficit. 2. Mild to moderate chronic small vessel ischemic change in the supratentorial white matter. 3. Otherwise unremarkable pituitary MR without and with contrast. Report Dictated By: Hector Bailey MD at 01/02/2019 12:54 PM Report E-Signed By: Hector Bailey MD at 01/02/2019 1:01 PM WSN:[email or web address]
== END ==
LOC: MRI 01:04
PROVIDERS: ATTEND Nurse Practitioner Family
DX: I25.9 Chronic ischemic heart disease, unspecified (principal)
CPT/HCPCS: 70553; A9577; J7050

== ENCOUNTER → 2019-01-09 | Outpatient (CLI) | payer MEDICARE, OTHER ==
[~2019-01-09] MED LIST changes: +GADOBENATE 529MG/1ML 10ML VIAL IVP ONE; -GADOBENATE 529MG/1ML 15ML VIAL IVP ONE; -NS(*) 0.9% 50 ML BAG 50 ML ONE
--- NOTE | 2019-01-09 15:25 | RADIOLOGY IMAGING REPORT ---
FACILITY: [facility] [place] PATIENT NAME: Alexandra Sharma : 1940 MR: [id number] V: [id number] EXAM DATE: [id number] ORDERING PHYSICIAN: CECILIA DOMINIQUE TECHNOLOGIST: Location: [facility] [place] Patient: Alexandra Sharma : 1940 Visit/Account:[id number] Date of Sevice: 01/09/2019 Examination: MR brain without and with contrast History: Cerebral microvascular disease Comparison: January 02, 2019 Technique: Multiplane MR imaging was performed through the brain without and with contrast. 15 cc IV multihance was administered. Findings: Diffusion: None Ventricles: Normal Midline shift: None Extraxial fluid: None Midline craniocervical structures: Small sebaceous cyst within the scalp vertex. Parenchyma: Mild to moderate unchanged patchy white matter high signal. Small region of hemosiderin staining along a right frontal sulcus is visible given gradient acquisition on this exam. A few smal l enhancing cortical vessels are also noted in this area. Enhancement: No pathologic enhancement Vascular flow voids: Normal Orbits and paranasal sinuses: Cataract postsurgical change. Other: Small bilateral mastoid effusions. Impression: 1. No acute finding. 2. Mild to moderate unchanged chronic small vessel ischemic change. 3. Chronic hemosiderin staining along a right frontal sulcus in keeping with residua of prior subara chnoid hemorrhage. 4. Asymmetric small enhancing cortical vessels in the right frontal region near the region of hemosi cesilia staining of doubtful clinical significance. An underlying AVM or dural AV fistula in this area is felt unlikely. Report Dictated By: Hector Bailey MD at 01/09/2019 3:09 PM Report E-Signed By: Hector Bailey MD at 01/09/2019 3:17 PM WSN:[id number]
--- NOTE | 2019-01-09 15:53 | RADIOLOGY IMAGING REPORT ---
FACILITY: [facility] PATIENT NAME: Alexandra Sharma : 1940 MR: [id number] V: [id number] EXAM DATE: ORDERING PHYSICIAN: CECILIA DOMINIQUE TECHNOLOGIST: Location: [facility] Patient: Alexandra Sharma : 1940 Visit/Account:[id number] Date of Sevice: 01/09/2019 CAROTID HISTORY: Visual field deficit COMPARISON: None. FINDINGS: Grayscale, duplex and color Doppler interrogation of the extracranial carotid and vertebral arteries was performed bilateral. On the right, peak systolic velocities within the common and internal carotid arteries are 78 and 73 cm/sec respectively. There is mild calcified plaque present at the carotid bulb. Doppler waveforms are within normal limits.. Antegrade flow within the common, internal and external carotid arteries as well as vertebral artery. ICA/CCA ratio 0.9. On the left, peak systolic velocities within the common and internal carotid arteries are 86 and 84 c m/sec respectively. Mild calcified plaque is present carotid bulb. Doppler waveforms are within nor mal limits.. Antegrade flow within the common, internal and external carotid arteries as well as makenzie tebral artery. ICA/CCA ratio 1.0. IMPRESSION: Mild bilateral carotid bulb plaque, less than 50% stenoses are present bilaterally. Velocity criteria are extrapolated from diameter data as defined by the Society of Radiologists in [facility] Consensus Conference Radiology 2003; 229;340-346 Report Dictated By: Lamont Quinones at 01/09/2019 3:43 PM Report E-Signed By: Lamont Quinones at 01/09/2019 3:46 PM WSN:[email or web address]
== END ==
LOC: MRI 00:35
PROVIDERS: ATTEND Nurse Practitioner Family
DX: I67.9 Cerebrovascular disease, unspecified (principal)
CPT/HCPCS: 70553; 93880; A9577